=== PATIENT | male | born 1965 | race Caucasian/White ===

== ENCOUNTER 2023-02-03 11:35 | Outpatient (CLI) | payer OTHER, SELFPAY | END 2023-02-03 11:36 | disposition home or self-care (01) | LOC: FBOREF 11:38 | PROVIDERS: Visit Provider Family Medicine | DX: E53.8 Deficiency of other specified B group vitamins (principal); I10 Essential (primary) hypertension; R53.83 Other fatigue | CPT/HCPCS: 80048; 82607 ==

== ENCOUNTER 2023-04-18 10:53 | Outpatient (CLI) | payer OTHER, SELFPAY ==
--- NOTE | 2023-04-29 08:11 | ONC.NURNOTE ---
Dx: Iron deficiency Anemia Patient called and notified that insurance is requesting more information and/or a change in formulation. Dr. Farrell's office was notified.
== END 2023-04-18 10:54 | disposition home or self-care (01) ==
PROVIDERS: Visit Provider Family Medicine
DX: I10 Essential (primary) hypertension (principal); E55.9 Vitamin D deficiency, unspecified; E53.8 Deficiency of other specified B group vitamins; Z12.5 Encounter for screening for malignant neoplasm of prostate; Z13.6 Encounter for screening for cardiovascular disorders; Z13.9 Encounter for screening, unspecified
CPT/HCPCS: 80061; 80076; 82306; 82607; 84153; 85025

== ENCOUNTER 2023-05-02 09:39 | Outpatient (CLI) | payer OTHER, SELFPAY | END 2023-05-02 09:40 | disposition home or self-care (01) | PROVIDERS: Visit Provider Family Medicine | DX: D50.9 Iron deficiency anemia, unspecified (principal) | CPT/HCPCS: 82728; 83540 ==

== ENCOUNTER 2023-05-09 09:04 | Outpatient (RCR) | payer OTHER, SELFPAY ==
--- NOTE | 2023-05-05 13:47 | URNOTE ---
Prior auth is not required for Infed (J1750) per Jana Campa at [facility] call ref #[id number] and per Nicole Cardenas at [facility], Call ref #[id number].
[2023-05-09 09:18] VITALS: BP 138/91; PULSE 68; RESP 16; TEMP 36.2; O2SAT 100
[2023-05-09] MEDS: IRON DEXTRAN COMPLEX 25 MG in 0.9 % SODIUM CHLORIDE 100 ml 100 ML 402 MG IVPB (10:03)
[2023-05-09] MEDS: IRON DEXTRAN COMPLEX 975 MG in 0.9 % SODIUM CHLORIDE 250 ml 250 ML 269.5 MG IVPB (11:09)
--- NOTE | 2023-05-09 12:36 | ONC.NURNOTE ---
tolerated the 25mg iron well. waited until giving the rest 40 min later. kole. well.
[2023-05-09 13:00] VITALS: BP 155/89; PULSE 65; RESP 16; TEMP 36.1; O2SAT 99
== END 2023-11-05 23:59 | disposition home or self-care (01) ==
LOC: CCIC 09:04
PROVIDERS: PCP Family Medicine; Visit Provider Family Medicine
DX: D50.9 Iron deficiency anemia, unspecified (principal)
CPT/HCPCS: 96365; 96366; J1750; J7050

== ENCOUNTER 2023-08-15 06:34 | Outpatient (CLI) | payer OTHER, SELFPAY ==
--- NOTE | 2023-08-15 07:50 | W.ANESCHARGE ---
Anesthesia Charges Start Date/Time Anesthesia Start Date: 08/15/23 Anesthesia Start Time: 07:20 Stop Date/Time Anesthesia Stop Date: 08/15/23 Anesthesia Stop Time: 07:47
== END 2023-08-15 06:35 | disposition home or self-care (01) ==
PROVIDERS: PCP Family Medicine; Visit Provider Internal Medicine
DX: Z86.010 Personal history of colon polyps (principal)
CPT/HCPCS: 00812; 45378; J2704

== ENCOUNTER 2024-04-02 09:58 | Outpatient (CLI) | payer OTHER, SELFPAY | END 2024-04-02 09:59 | disposition home or self-care (01) | PROVIDERS: PCP Family Medicine; Visit Provider Family Medicine | DX: I10 Essential (primary) hypertension (principal); E55.9 Vitamin D deficiency, unspecified; E53.8 Deficiency of other specified B group vitamins; D50.9 Iron deficiency anemia, unspecified; Z12.5 Encounter for screening for malignant neoplasm of prostate | CPT/HCPCS: 80053; 82306; 82607; 82728; 85025; G0103 ==

== ENCOUNTER 2024-04-30 09:55 | Outpatient (RCR) | payer OTHER, SELFPAY ==
--- NOTE | 2024-04-18 14:04 | URNOTE ---
Prior auth is not required for Infed ([id number]) per Consuelo Uribe call ref #[id number] and per Fredrick Rodriguez at [facility], Call ref #[id number].
--- NOTE | 2024-04-27 14:23 | PC.NURSE ---
Addendum entered by Flora Gould RN 04/27/24 14:25: per notes/past medical history Original Note: Diagnosis: Iron Deficiency Anemia
[2024-04-30 10:31] VITALS: BP 126/71; PULSE 68; RESP 16; TEMP 36.3; O2SAT 100
[2024-04-30] MEDS: IRON DEXTRAN COMPLEX 25 MG in 0.9 % SODIUM CHLORIDE 100 ml 100 ML 402 MG IVPB (10:43)
[2024-04-30 11:09] VITALS: BP 135/85; PULSE 62; RESP 16; TEMP 36.4; O2SAT 99
[2024-04-30] MEDS: IRON DEXTRAN COMPLEX 975 MG in 0.9 % SODIUM CHLORIDE 250 ml 250 ML 269.5 MG IVPB (11:53)
[2024-04-30 13:10] VITALS: BP 144/91; PULSE 55; RESP 16; TEMP 36.1; O2SAT 98
[2024-04-30 13:27] VITALS: BP 138/80; PULSE 47; RESP 16; TEMP 36.8; O2SAT 99
== END 2024-10-27 23:59 | disposition home or self-care (01) ==
LOC: CCIC 09:55
PROVIDERS: PCP Family Medicine; Referring Provider Family Medicine; Visit Provider Family Medicine
DX: D50.9 Iron deficiency anemia, unspecified (principal)
CPT/HCPCS: 96365; 96376; J1750; J7050

== ENCOUNTER 2025-04-22 13:59 | Outpatient (CLI) | payer OTHER, SELFPAY | END 2025-04-22 14:00 | disposition home or self-care (01) | PROVIDERS: PCP Family Medicine; Visit Provider Family Medicine | DX: E78.2 Mixed hyperlipidemia (principal); I10 Essential (primary) hypertension; D50.9 Iron deficiency anemia, unspecified; E55.9 Vitamin D deficiency, unspecified; E53.8 Deficiency of other specified B group vitamins; M25.512 Pain in left shoulder; Z98.84 Bariatric surgery status; Z12.5 Encounter for screening for malignant neoplasm of prostate | CPT/HCPCS: 80048; 80061; 82306; 82607; 82728; 85025; G0103 ==